=== PATIENT | female | born 2000 | race Two or more races ===

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

== ENCOUNTER 2023-08-22 15:27 | Emergency (ER) | payer OTHER, SELFPAY ==
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
[2023-08-22 15:51] VITALS: BP 133/58; PULSE 96; RESP 18; TEMP 36.8; O2SAT 95; BMI 29.1
== END 2023-08-22 17:14 | disposition home or self-care (01) ==
PROVIDERS: Emergency Provider Emergency Medicine Emergency Medical Services; PCP Pediatrics
DX: S39.92XA Unspecified injury of lower back, initial encounter (principal); X58.XXXA Exposure to other specified factors, initial encounter; Y93.9 Activity, unspecified; Y92.9 Unspecified place or not applicable; Y99.9 Unspecified external cause status
CPT/HCPCS: 72100; 99282; 99283

== ENCOUNTER → 2024-06-09 10:52 | Outpatient (RCR) | payer OTHER, SELFPAY ==
[2020-09-01 14:27] VITALS: BP 120/64; PULSE 72; RESP 12; TEMP 36.8; O2SAT 99; BMI 32.1
--- NOTE | 2020-09-01 14:40 | PM.HEMONCPN ---
Medical Summary - Medical Summary Chief complaint: Follow-up Medical Summary: Diagnosis: Iron deficiency anemia, thalassemia trait Referred for evaluation of anemia during 1st , 3rd trimester. LAQUITA June 22. Hemoglobin 10.0 in November 2019, March 7.5 gram/dL, MCV 65-68, RDW slightly elevated at 16.7%. She delivered a healthy baby girl in August 2020. Interval History Interval history: Patient is here in follow-up. She had a normal delivery 3 weeks ago and has a healthy baby girl. She did not required blood transfusion at the time of delivery. She reports no complications. She reports chronic fatigue. She denies any chest pain, shortness of breath, palpitation or dizziness. She is not breast feeding. She is not taking any multivitamins or vitamins. Review of Systems - Constitutional Reports as per HPI, Reports no additional constitutional complaints - Cardiovascular Reports no additional cardiovascular complaints - Respiratory Reports no additional respiratory complaints [facility] Medical History: Medical History (Last Updated 09/01/20 @ 14:30 by Nikki Barrios) Anemia Thalassemia Family History: Family History (Last Updated 09/01/20 @ 14:32 by Nikki Barrios) Mother Thalassemia Asthma Paternal Grandfather Cancer Father HTN (hypertension) Oncology Screenings - ECOG Performance Status ECOG Performance Status: 0 Home Medications and Allergies Home Medications Medication Instructions Recorded Confirmed Type ferrous sulfate 1 tab PO DAILY 09/01/20 09/01/20 History Allergies Allergy/AdvReac Type Severity Reaction Status Date / Time shrimp [SHRIMP] Allergy Unknown ANAPHYLAXIS Verified 08/14/20 10:48 acetaminophen [From TYLENOL] AdvReac Mild HIVES, RASH Verified 08/14/20 10:48 Exam Vital signs: Vital Signs Temp 98.2 F 09/01/20 14:27 Pulse 72 09/01/20 14:27 Resp 12 09/01/20 14:27 BP 120/64 09/01/20 14:27 Pulse Ox 99 09/01/20 14:27 Intake & Output 08/31/20 09/01/20 09/01/20 18:59 06:59 18:59 Other: Weight 90.3 kg Weight 90.3 kg Body Mass Index 32.1 - Constitutional Present: no acute distress - Routine HEENT Exam Head: Present: normal inspection Eye: Present: EOMI - Routine Neck Exam Present: normal inspection - Routine Respiratory Exam Absent: rhonchi, wheezes - Routine Cardiovascular Exam Cardiovascular: Present: S1, S2 Data - Labs CBC & Chem 7: 09/01/20 15:10 Progress Note: A/P (1) Anemia Status: Acute Assessment and plan: 1. This is a 19-year-old woman with microcytic anemia noted during her 1st . She has thalassemia trait. Her anemia has improved since her . Iron studies are pending. She is asymptomatic. She was advised to take multivitamin or folic acid supplementation. Follow-up in 6 months. - Time Spent With Patient Total time spent is greater than 50% in coordination of care (as documented) at patient's floor/unit and/or counseling patient: 15 - 24 minutes
[2020-09-01 15:48] LABS: MANUAL DIFF FLAG NO
[2020-09-01 16:00] LABS: Basophils Percent Auto 0.4 % (0-2); Eosinophils Absolute Auto 0.1 X10*3/uL (0.0-0.4); Eosinophils Percent Auto 2.1 % (0-4); Hematocrit 35.2 % (36-46); Hemoglobin 10.3 g/dl (12.0-16.0); Imm Gran Abs Auto 0.02 X10*3/uL (0.00-0.03); Imm Gran Pct Auto 0.3 % (0.0-0.4); Lymphocytes Absolute Auto 2.7 X10*3/uL (1.2-4.9); Lymphocytes Percent Auto 40.2 % (25-45); Mean Corpuscular HGB Conc 29.3 g/dl (31.0-37.0); Mean Corpuscular Hemoglobin 19.3 pg (25.0-35.0); Monocytes Absolute Auto 0.5 X10*3/uL (0.1-1.2); Monocytes Percent Auto 7.3 % (2-11); Neutrophils Absolute Auto 3.3 X10*3/uL (2.0-8.3); Neutrophils Percent Auto 49.7 % (42-72); Platelet Count 345 X10*3/uL (160-400); Red Blood Count 5.33 X10*6/uL (4.10-5.10); Red Cell Distribution Width 14.4 % (11.0-16.0); White Blood Count 6.7 X10*3/uL (4.8-10.8)
[2020-09-01 16:35] LABS: Iron 39 mcg/dL (30-160); Percent Iron Saturation 11 % (15-50); Total Iron Binding Capacity 362 mcg/dL (228-428); Unsaturated Iron Binding 323 ug/dL
== END | disposition home or self-care (01) ==
LOC: HO.ONC 09-01 14:04
PROVIDERS: PCP Nurse Practitioner Pediatrics; Visit Provider Internal Medicine
DX: D50.9 Iron deficiency anemia, unspecified (principal); D56.3 Thalassemia minor
CPT/HCPCS: 36415; 83540; 85025; 99213